=== PATIENT | male | born 1975 | race Caucasian/White ===

== ENCOUNTER 2016-12-06 01:16 | Emergency (ER) | payer OTHER ==
[2016-12-06 01:52] LABS: BASOPHIL % 0.1 % (0-2); PLATELET COUNT 256 x10^3mcL (130-400); RED CELL DISTRIBUTION WIDTH 13.6 % (11.5-14.5)
[2016-12-06 01:58] LABS: CALCIUM 7.9 mg/dL (8.5-10.1); CARBON DIOXIDE 27.2 mmol/L (21-32); CHLORIDE SERUM 107 mmol/L (98-107); GFR1 > 60 mL/min; GLUCOSE SERUM 116 mg/dL (74-106); SODIUM SERUM 144 mmol/L (136-145)
[2016-12-06 02:03] LABS: ALKALINE PHOSPHATASE 63 U/L (46-116); ALT/SGPT 20 U/L (16-63); AST/SGOT 21 U/L (15-37); BILIRUBIN TOTAL 0.21 mg/dL (0.20-1.00)
[2016-12-06 02:11] LABS: ALBUMIN 3.2 g/dL (3.4-5.0)
[2016-12-06 03:15] LABS: UA SPECIFIC GRAVITY 1.015 (1.005-1.035)
[2016-12-06 03:16] LABS: microscopic required? YES; urine erythrocyte TRACE (NEGATIVE)
[2016-12-06 03:27] LABS: AMPHETAMINE QUAL UR POSITIVE (NEG <=1000)
[2016-12-06 03:56] VITALS: BP 141/85
== END 2016-12-06 03:56 | disposition home or self-care (01) ==
LOC: ED 01:16
PROVIDERS: Emergency Medicine Emergency Medical Services
DX: F10.129 Alcohol abuse with intoxication, unspecified (principal); F12.929 Cannabis use, unspecified with intoxication, unspecified; F15.129 Other stimulant abuse with intoxication, unspecified; B19.20 Unspecified viral hepatitis C without hepatic coma
CPT/HCPCS: G0480; J7030; Q0092